=== PATIENT | female | born 1990 | race Two or more races ===

== ENCOUNTER 2024-09-01 07:54 | Emergency (ER) | payer MEDICAID, SELFPAY ==
[2024-09-01 07:55] VITALS: BMI 22.3
[2024-09-01 07:57] VITALS: BP 119/83; PULSE 75; RESP 19; O2SAT 95
--- NOTE | 2024-09-01 08:07 | XR_ITS ---
Examination: CT brain head without contrast. 2-D sagittal coronal reconstructions Date and time of exam:September 01, 2024 0811 hrs. Indications: Severe headache beginning 4:00 AM today CTDI: vol (mGy):40.8 DLP: (mGycm):834 Technique: Multiple CT axial sections of the brain have been obtained, 5 mm slice thickness. Contrast has not been administered. 2-D sagittal, coronal reconstructions have been obtained Low dose protocols were performed. One or more of the following dose reduction techniques were used; automated exposure control, adjustment of the mA and/or KV according to patient size, use of iterative reconstruction technique. Findings: No significant ventricular enlargement. Intra-axial or extra-axial hemorrhage density is not seen. No mass effect or midline shift Basal cisterns are not remarkable. Fourth ventricle is midline. Cranial vault intact. Impression: Negative for acute hemorrhage, mass effect or midline shift
[2024-09-01] MEDS: METOCLOPRAMIDE INJ 5 MG/ML VIAL 2 ML 10 MG IM (08:21)
[2024-09-01] MEDS: ACETAMINOPHEN 500 MG TABLET 1000 MG PO (08:21)
[2024-09-01] MEDS: DiphenhydrAMINE 25 MG CAPSULE PO (08:21)
--- NOTE | 2024-09-01 11:03 | PD.EDHA ---
ED Headache RME/HPI General Chief Complaint: Headache Stated Complaint: MIGRAINE HEADACHE SINCE 4AM Time Seen by Provider: 09/01/24 07:56 Arrival date/time: 09/01/24 07:54 33-year-old female with history of migraine headaches presents to the emergency department today with complaints of headache ongoing since this morning patient reports no dizziness or weakness patient does report nausea Limitations: no limitations Related Data Home Medications ?Medication ?Instructions ?Recorded ?Confirmed Amitriptyline Hcl * (ELAVIL *) 25 mg PO HS Migraine Headache #0 05/03/15 tabs Ibuprofen * (MOTRIN *) 400 mg PO Q8HR PRN PAIN #0 tabs 05/03/15 Previous Rx's ?Medication ?Instructions ?Recorded Phenazopyridine * (PYRIDIUM *) 200 mg PO TIDPC #6 tabs 09/04/16 ibuprofen 600 mg tablet 600 mg PO Q6HR PRN PAIN #25 tabs 09/04/16 sumatriptan succinate 100 mg 100 mg PO Q2HR PRN HEADACHE 08/24/17 tablet (Imitrex) (MIGRAINE) #9 tabs ketorolac 10 mg tablet 10 mg PO TID PRN pain 3 days #10 09/01/24 tabs metoclopramide HCl 10 mg tablet 10 mg PO Q6H PRN nausea and 09/01/24 (Reglan) vomiting #30 tabs Allergies Allergy/AdvReac Type Severity Reaction Status Date / Time tramadol Allergy Severe Palpitation Verified 09/01/24 07:57 s Review of Systems Review of Systems Systems Reviewed: All systems reviewed, normal except as documented Constitutional Constitutional: Reports system reviewed and no additional complaints, except as documented, Denies fever(s) and Reports headache(s) Eyes Eyes: Reports system reviewed and no additional complaints, except as documented and Denies blurry vision ENT Ears, Nose, Mouth, and Throat: Reports system reviewed and no additional complaints, except as documented, Reports headache(s), Denies nasal congestion and Denies nasal discharge Cardiovascular Cardiovascular: Reports system reviewed and no additional complaints, except as documented, Denies chest pain and Denies dyspnea Respiratory Respiratory: Reports system reviewed and no additional complaints, except as documented, Denies chest congestion, Denies cough and Denies dyspnea Gastrointestinal Gastrointestinal: Reports system reviewed and no additional complaints, except as documented and Denies abdominal pain Integumentary/Breasts Skin/Breast: Reports system reviewed and no additional complaints, except as documented and Denies rash Neurologic Neurologic: Reports system reviewed and no additional complaints, except as documented, Reports as per HPI and Reports headache(s) Past Medical History Social History SMOKING STATUS: Never smoker ED Exam General Limitations: Present no limitations General appearance: Present alert and in no apparent distress Head Head exam: Present atraumatic, normocephalic and normal inspection Eye Eye exam: Present normal appearance, PERRL and EOMI; Absent conjunctival injection ENT ENT exam: Present normal exam, normal oropharynx and mucous membranes moist Neck Neck exam: Present normal inspection, full ROM and trachea midline; Absent tenderness, meningismus, lymphadenopathy or thyromegaly Chest Chest inspection: Present normal inspection and symmetric chest wall rise; Absent tenderness Respiratory Respiratory exam: Present normal lung sounds bilaterally Cardiovascular Cardiovascular exam: Present regular rate, normal rhythm and normal heart sounds Abdominal Exam Abdominal exam: Present soft and normal bowel sounds Extremities Exam Extremities exam: Present normal inspection and full ROM Back Exam Back exam: Present normal inspection and full ROM Neurological Exam Neurological exam: Present alert, oriented X3 and CN II-XII intact Psychiatric Psychiatric exam: Present normal affect and normal mood Skin Skin exam: Present warm, dry, intact and normal color Course Quality Measures none Orders Category Date Time Status Bedside COVID-19 Antigen Test NOW Care 09/01/24 08:07 Completed Bedside Influenza A&B Antigen Test NOW Care 09/01/24 08:[address] head/brain wo con Stat Exams 09/01/24 08:07 Taken Acetaminophen Tab [Tylenol ES Tab] Med 09/01/24 08:07 Discontinued 1,000 mg PO X1 ONE DiphenhydrAMINE [Benadryl] Med 09/01/24 08:07 Discontinued 25 mg PO X1 ONE Ketorolac Inj [Toradol Inj] Med 09/01/24 11:05 Discontinued 30 mg IM X1 ONE Metoclopramide Inj [Reglan Inj] Med 09/01/24 08:13 Discontinued 10 mg IM X1 ONE Metoclopramide [Reglan] Med 09/01/24 08:07 Discontinued 10 mg PO X1 ONE Vital Signs Vital signs: Vital Signs Pulse Rate 75 09/01/24 07:57 Respiratory Rate 19 09/01/24 07:57 Blood Pressure 119/83 09/01/24 07:57 Pulse Oximetry (%) 95 09/01/24 07:57 Oxygen Delivery Method Room Air 09/01/24 07:57 Headache MDM Narrative MDM Narrative:: 33-year-old female with history of migraine headaches presents to the emergency department today with complaints of headache ongoing since this morning patient reports no dizziness or weakness patient does report nausea On exam patient well-appearing patient does not appear ill or toxic and in no acute distress CT scan head obtained no acute emergent findings noted Patient medicated here for pain patient where she feels significantly better Patient discharged home in no distress to follow-up with primary care doctor in the next 24 to 48 hours and for any worsening symptoms to return to the ER immediately Patient data External records reviewed:: [facility] previous records Clinical information provided by:: patient Social determinants that could affect healthcare access:: none Patient has the following chronic illnesses:: Migraine How is presenting disease/condition affected by chronic disease/condition?: caused by Evaluation data The following diagnostics were reviewed and interpreted by me:: radiology exam(s) Lab and/or radiology exams considered but not ordered:: Radiology obtained Interpretation Summary: Reviewed by me Medications / Prescriptions Medications or Prescriptions considered but not ordered:: Given Medication administrations:: Medication Administration History Discontinued Medications Acetaminophen (Acetaminophen 500 Mg Tablet) 1,000 mg PO X1 ONE Stop: 09/01/24 08:08 Last Admin: 09/01/24 08:21 Dose: 1,000 mg Documented By: IVY Diphenhydramine HCl (Diphenhydramine 25 Mg Capsule) 25 mg PO X1 ONE Stop: 09/01/24 08:08 Last Admin: 09/01/24 08:21 Dose: 25 mg Documented By: IVY Ketorolac Tromethamine (Ketorolac Inj 30 Mg/Ml Vial) 30 mg IM X1 ONE Stop: 09/01/24 11:06 Last Admin: 09/01/24 11:11 Dose: 30 mg Documented By: NELSON Metoclopramide HCl (Metoclopramide 5 Mg Tablet) 10 mg PO X1 ONE Stop: 09/01/24 08:08 Last Admin: 09/01/24 08:29 Dose: Not Given Documented By: IVY Non-Admin Reason: Cancelled by Provider Metoclopramide HCl (Metoclopramide Inj 5 Mg/Ml Vial 2 Ml) 10 mg IM X1 ONE; Protocol Stop: 09/01/24 08:14 Last Admin: 09/01/24 08:21 Dose: 10 mg Documented By: TM Given Consultations Consultation(s) initiated? (list below): No Diagnosis Differential diagnosis headache: migraine, tension headache and subarachnoid hemorrhage Most likely diagnosis given after review of the tests above:: Headache Admission Indicated Admission indicated?: not indicated Admission Request Was there a request for admission?: No Disposition Plan Disposition Plan: Discharge Discharge Attestation Discharge Attestation: The patient and all family members were given an opportunity to ask questions and understood the discharge instructions. Discharge instructions specifically effects, indications for sooner follow up or return to the emergency department, and the expected course of current diagnosis. Patient condition: Stable Discharge Plan Plan Patient Disposition: HOME (Self Care) Disposition Comment: Stable Prescriptions/Referrals Prescriptions/Med Rec: New ketorolac 10 mg tablet 10 mg PO TID PRN (Reason: pain) 3 Days Qty: 10 0RF metoclopramide HCl [Reglan] 10 mg tablet 10 mg PO Q6H PRN (Reason: nausea and vomiting) Qty: 30 0RF No Action Amitriptyline Hcl * (ELAVIL *) 25 MG tablet 25 mg PO HS Qty: 0 Ibuprofen * (MOTRIN *) 400 MG tablet 400 mg PO Q8HR PRN (Reason: PAIN) Qty: 0 Phenazopyridine * (PYRIDIUM *) 200 MG tablet 200 mg PO TIDPC Qty: 6 0RF ibuprofen 600 MG tablet 600 mg PO Q6HR PRN (Reason: PAIN) Qty: 25 0RF sumatriptan succinate [Imitrex] 100 MG tablet 100 mg PO Q2HR PRN (Reason: HEADACHE (MIGRAINE)) Qty: 9 0RF Referrals: Rhoda Kirkpatrick MD [Primary Care Provider] - 09/02/24 Problem List Clinical Impression: Migraine Patient/Caregiver Discharge Instructions Education Materials: ED Headache, Migraine, Classic Additional Instructions: Please follow-up with your specialist as discussed for worsening symptoms return immediately Print Language: Fijian Stand Alone Forms: Adriana Award Info., Patient Portal Info Letter PA/BANKING SERVICES CLERK Supervising Physician VINNIE/AARON Supervising Physician: Dr. Mayers
[2024-09-01] MEDS: KETOROLAC INJ 30 MG/ML VIAL IM (11:11)
== END 2024-09-01 11:22 | disposition home or self-care (01) ==
PROVIDERS: Emergency Provider Emergency Medicine; PCP Internal Medicine
DX: G43.909 Migraine, unspecified, not intractable, without status migrainosus (principal)
CPT/HCPCS: 70450; 96372; 99284; J1885; J2765; A9270